=== PATIENT | female | born 1985 | race Caucasian/White ===

== ENCOUNTER → 2024-02-15 08:01 | Outpatient (REF) | payer OTHER, SELFPAY | LOC: HWEVLT 08:01 | PROVIDERS: ATTENDING PHYSICIAN Radiology Vascular & Interventional Radiology | DX: I83.891 Varicose veins of right lower extremity with other complications (principal) | CPT/HCPCS: 36478 ==

== ENCOUNTER → 2024-02-29 14:50 | Outpatient (REF) | payer OTHER, SELFPAY | LOC: HWEVLT 14:50 | PROVIDERS: ATTENDING PHYSICIAN Radiology Vascular & Interventional Radiology | DX: I83.893 Varicose veins of bilateral lower extremities with other complications (principal) | CPT/HCPCS: 93970 ==

== ENCOUNTER 2024-03-08 10:35 | Emergency (ER) | payer OTHER, SELFPAY ==
[2024-03-08 10:36] VITALS: BP 126/82
[2024-03-08 11:07] LABS: Urine Albumin Negative (Neg - Trace); Urine Bilirubin Negative (Negative); Urine Character Clear (Clear); Urine Color Yellow; Urine Glucose Negative (Negative); Urine Ketone Negative (Negative); Urine Leukocyte 1+ (Negative); Urine Nitrite Negative (Negative); Urine Occult Blood Negative (Negative); Urine Urobilinogen Negative (Neg - 1+)
[2024-03-08] MEDS: NSS 1000 IV (11:08)
[2024-03-08] MEDS: TORADOL 15 MG IV (11:09)
[2024-03-08 11:13] LABS: HCG, Urine Qualitative Screen Negative
[2024-03-08 11:23] LABS: Urine Red Blood Cell 0-2 /HPF (0-2)
[2024-03-08 11:25] LABS: % Basophils 0.6 % (0-2); % Eosinophils 0.3 % (0-6); % Immature Granulocytes 0.3 % (0-0.5); % Lymphocytes 22.9 % (20.5-51.1); % Monocytes 6.3 % (1.7-9.3); % Neutrophils 69.6 % (42.2-75.2); Absolute Basophils 0.1 10^3/uL (0-0.2); Absolute Lymphocytes 2.6 10^3/uL (1.2-3.4); Absolute Monocytes 0.7 10^3/uL (0.1-0.6); Absolute Neutrophils 7.7 10^3/uL (1.4-6.5); Hematocrit 38.3 % (37.0-47.0); Hemoglobin 12.7 g/dL (12.0-16.0); Mean Corp Hgb Conc. 33.2 g/dL (33.0-37.0); Mean Corpuscular Hgb 27.7 pg (27.0-31.0); Mean Corpuscular Volume 83.6 fL (81.0-99.0); Mean Platelet Volume 9.4 fL (7.4-10.4); Nucleated Red Blood Cells % 0 %; Platelet Count 284 10^3/uL (130-400); Red Blood Cell Count 4.58 10^6/uL (4.20-5.40); White Blood Cell Count 11.1 10^3/uL (4.8-10.8)
[2024-03-08 11:28] LABS: ALT (SGPT) 44 U/L (0-35); AST (SGOT) 41 U/L (14-36); Albumin 4.5 g/dl (3.5-5.0); Alkaline Phosphatase 79 U/L (38-126); Blood Urea Nitrogen 16 mg/dl (7-17); Calcium 9.6 mg/dl (8.4-10.2); Carbon Dioxide 22 mmol/L (22-30); Chloride 104 mmol/L (98-107); Glucose 87 mg/dl (70-99); Potassium 4.2 mmol/L (3.5-5.1); Sodium 136 mmol/L (135-145); Total Bilirubin 0.7 mg/dl (0.2-1.3); Total Protein 7.8 g/dl (6.3-8.2); eGFR > 60.00
--- NOTE | 2024-03-08 12:29 | ED.GENMED ---
History of Present Illness
General
Chief Complaint: Abdominal Pain
Source: patient
Exam Limitations: none
Time Seen by Provider: 03/08/24 10:46
Nursing documentation reviewed up to this point in time: agreed with
Travel History
Have you had any contact with someone who has COVID-19?: No
Do you have any symptoms of coronavirus? Fever > 100 degrees, chills, cough, shortness of breath, sore throat, loss of taste or smell, muscle aches, or headache?: No
History of Present Illness
History of Present Illness:
38-year-old female with history of celiac disease, cholecystectomy, presents stating 4 days ago developed left lower back pain that has gradually increased and now radiates around the left side to the left lower quadrant. Pain is worse
with movement, deep breaths and worse with urination and moving her bowels. She took Advil with no relief. She denies fever or chills. She denies bloody stools. She states pain is now 7/10.
Past History
Past History
ED Past Medical History: Other (chronic back pain) and Other (Celiac disease, history of herniated disks)
ED Past Surgical History: Cholecystectomy and
Social History
Tobacco: Former smoker
Alcohol: Occasional
Drug: None
Personal:
Living: with family
Employment: Employed
Review of Systems
Review of Systems
Allergies reviewed?: Yes
All Other Systems: ROS reviewed and negative except as documented in HPI and ROS
Constitutional: Denies fever or chills
Respiratory: Denies trouble breathing
Cardiac: Denies chest pain
ABD/GI: Reports abdominal pain and diarrhea (gets diarrhea frequently, has 'stomach issues' has appt with GI Dr. Larios in April. Last colonoscopy 2 yrs ago 'diverticulosis'); Denies nausea, vomiting, constipated, bloody stools, black stools or
anorexia
: Reports flank pain (left); Denies dysuria, frequency, difficulty voiding or urgency
Musculoskeletal: Reports back pain
Skin: Reports no symptoms
Neurological: Reports no symptoms
Phy Exam
Physical Exam
Physical Exam:
GENERAL: No acute distress. A&Ox3.
CONSTITUTIONAL: Afebrile.
EYES: PERRL, conjunctivae normal
ENMT: moist mucus membranes, Pharynx nl
RESPIRATORY: Regular respirations, nonlabored, lungs clear.
CARDIOVASCULAR: Regular rate and rhythm, no murmurs, no rubs.
GI: Soft, obese, tender left abdomen,, normal BS
MUSCULOSKELETAL: Moves with ease. Well perfused.
SKIN: Warm, dry, pink
PSYCH: Normal mood and affect. Well kept, interactive and appropriate
NEUROLOGIC: Awake, alert and oriented. No focal neurological deficits
Course
Orders/Labs/Results
Orders:
Orders
03/08/24 10:50
Test Result ONCE
03/08/24 10:54
HCG, Urine Qualitative Screen Urgent
Date Specimen was Collected: 03/08/24
Time Specimen was Collected: 10:50
Urinalysis Reflex To Culture Urgent
Date Specimen was Collected: 03/08/24
Time Specimen was Collected: 10:50
Urine Microscopic Reflex Cult Urgent
Urine Culture Urgent
KIRAN Source: U
Specimen Description:
Obtained by: Random
Date Specimen was Collected: 03/08/24
Time Specimen was Collected: 10:50
03/08/24 10:55
Ketorolac [Toradol] 15 mg IV NOW STA
03/08/24 10:56
0.9% Sodium Chloride 1000 ml [Nss] 1,000 ml IV BOLUS
03/08/24 10:59
CT Abd/pel Without Iv Or Oral Urgent
Comment:
Reason For Exam: Left flank pain
03/08/24 11:00
Complete Blood Count/With Diff Urgent
Comprehensive Metabolic Panel Urgent
Abnormal Lab Results
03/08/24 03/08/24
10:54 11:00
WBC 11.1 H 10^3/uL
(4.8-10.8)
Absolute Neuts (auto) 7.7 H 10^3/uL
(1.4-6.5)
Absolute Monos (auto) 0.7 H 10^3/uL
(0.1-0.6)
AST 41 H U/L
(14-36)
ALT 44 H U/L
(0-35)
Leukocyte Esterase Rfl 1+ A
(Negative)
03/08/24 11:00
03/08/24 11:00
Vital Signs
Initial and Last Documented VS:
Initial Vital Signs
Temp Pulse Resp BP Pulse Ox
98.5 F 95 20 126/82 97
03/08/24 10:36 03/08/24 10:36 03/08/24 10:36 03/08/24 10:36 03/08/24 10:36
Last Documented Vital Signs
Temp Pulse Resp BP Pulse Ox
98.5 F 95 20 126/82 97
03/08/24 10:36 03/08/24 10:36 03/08/24 10:36 03/08/24 10:36 03/08/24 10:36
MDM/Problems Addressed
Differential Diagnosis Includes:
kidney stone, UTI, pyelonephritis, diverticulitis
MDM/Problems Addressed:
38-year-old female with history of celiac disease, cholecystectomy, presents stating 4 days ago developed left lower back pain that has gradually increased and now radiates around the left side to the left lower quadrant. Pain is worse
with movement, deep breaths and worse with urination and moving her bowels. She took Advil with no relief. She denies fever or chills. She denies bloody stools. She states pain is now 05/03.
Afebrile, NAD
11:30 AM
CBC normal
CMP with no clinically significant abnormality
IMPRESSION:
1. Acute diverticulitis descending colon. There is no abscess formation or drainable collection.
2. Unchanged benign 3 mm nodule right lower lobe.
3. Hepatomegaly and hepatic fatty infiltration. Splenomegaly.
4. Moderate fat-containing umbilical hernia.
5. Post cholecystectomy.
Rx for Cipro/Flagyl sent to her pharmacy.
She is comfortable going home
Sees Dr. Larios for her 'stomach issues and has appt in April. She will call to see if it needs to be moved up
*Critical Care Note
Total Time (30-74mins, 75-104mins- exclusive of procedures): Not Applicable
ED Attending Note
-
Portions of this chart may have been created with voice recognition software.� Occasional wrong word or��sound alike� substitutions may have occurred due to the inherent limitations of voice recognition software.
Discharge Plan
Departure
Patient Disposition: Home (Routine Discharge)
Date of Disposition: 03/08/24
Time of Disposition: 12:36
Patient with high blood pressure during this ER visit?: No
Condition: Good
Discharge Problem:
Diverticulitis large intestine
Instructions: Clear Liquid Diet, Diverticulitis (DC)
Prescriptions:
New
ciprofloxacin HCl [Cipro] 500 mg tablet
500 mg PO BID Qty: 20 0RF
metronidazole 500 mg tablet
500 mg PO TID Qty: 30 0RF
No Action
cyclobenzaprine 10 MG tablet
10 mg PO TIDPRN PRN (Reason: pain/spasm) Qty: 17 0RF
Referrals:
Juan Larios MD [Active] - Call in 1-3 days for appt
Genesis Szymanski MD [Family Provider] -
Activity Restrictions/Additional Instructions:
As we discussed, I sent prescription to your pharmacy for two antibiotics Flagyl to take 3 times a day and Cipro to take twice a day.
Clear liquid diet for 2 days to give your bowel a rest
Call Dr. Larios's office and ask if you should move your April appointment due to today's diagnosis
Return here immediately for fever, chills, worsening abdominal pain, bloody stools or feeling sicker in any way.
There is no specific diet for diverticulitis
Interventions
Interventions:
*Risk Screen - Suicide Last Done: 03/08/24 10:36
*General Assessment Last Done: 03/08/24 10:36
*Neglect/Abuse Screening Last Done: 03/08/24 10:36
ED- Fall Risk Assessment Last Done: 03/08/24 13:00
*ED COVID-19 Vaccine History Last Done: 03/08/24 13:00
*Nursing Disposition Last Done: 03/08/24 13:00
NG-Mdoncp-Cemlndrumd Assessment Last Done: 03/08/24 11:49
Discharge Date and Time
Discharge Date/Time: 03/08/24 13:01
Print Language: KOREAN
== END 2024-03-08 13:01 | disposition home or self-care (01) ==
LOC: EMR 10:35
PROVIDERS: Registered Nurse; EMERGENCY PHYSICIAN Emergency Medicine; FAMILY PHYSICIAN Family Medicine
DX: M54.50 Low back pain, unspecified (principal); R10.32 Left lower quadrant pain; K57.32 Diverticulitis of large intestine without perforation or abscess without bleeding; K90.0 Celiac disease; K42.9 Umbilical hernia without obstruction or gangrene; R91.1 Solitary pulmonary nodule; K76.0 Fatty (change of) liver, not elsewhere classified; R16.2 Hepatomegaly with splenomegaly, not elsewhere classified; J45.909 Unspecified asthma, uncomplicated; G89.29 Other chronic pain; Z90.49 Acquired absence of other specified parts of digestive tract; Z87.891 Personal history of nicotine dependence
CPT/HCPCS: 99284; 96374; 96361; 74176; 80053; 81003; 81015; 81025; 85025; 87086

== ENCOUNTER 2024-10-16 06:22 | Day surgery (SDC) | payer OTHER, SELFPAY ==
[2024-10-16 07:33] LABS: Glucose - Point of Care 90 mg/dl (70-99)
== END 2024-10-16 09:30 | disposition home or self-care (01) ==
LOC: GI 06:22
PROVIDERS: ATTENDING PHYSICIAN Specialist
DX: K63.5 Polyp of colon (principal); K57.30 Diverticulosis of large intestine without perforation or abscess without bleeding; K62.1 Rectal polyp; Z87.19 Personal history of other diseases of the digestive system
CPT/HCPCS: 45380; 88305; 82962

== ENCOUNTER → 2025-06-08 15:16 | Outpatient (REF) | payer OTHER, SELFPAY | LOC: MRI 15:16 | PROVIDERS: ATTENDING PHYSICIAN Specialist; FAMILY PHYSICIAN Family Medicine | DX: K75.81 Nonalcoholic steatohepatitis (NASH) (principal) | CPT/HCPCS: 74181; 76391 ==

== ENCOUNTER → 2025-06-22 11:14 | Outpatient (REF) | payer OTHER, SELFPAY | LOC: RAD 11:14 | PROVIDERS: ATTENDING PHYSICIAN Specialist; FAMILY PHYSICIAN Family Medicine | DX: K90.0 Celiac disease (principal) | CPT/HCPCS: 77080 ==